=== PATIENT | male | born 1955 | race Caucasian/White ===

== ENCOUNTER → 2021-01-04 | Outpatient (CLI) | payer OTHER ==
--- NOTE | 2021-01-04 17:07 | RAD ---
EXAM: Head CT without contrast. HISTORY: Acute posttraumatic headache. Laceration. TECHNIQUE: Computed tomographic images of the head were obtained without contrast. *One or more of the following individualized dose reduction techniques were utilized for this examina tion: 1. Automated exposure control. 2. Adjustment of the mA and/or kV according to patient size. 3. Use of iterative reconstruction technique. COMPARISON: None. FINDINGS: There is no acute or subacute extra-axial or intraparenchymal hemorrhage. There is no mass effect or midline shift. There is no hydrocephalus. There are areas of decreased attenuation within the cerebral white matter, nonspecific and likely rel ated to chronic small vessel disease. There is mild paranasal sinus mucosal thickening. The orbits and mastoid air cells are unremarkable. There is no calvarial lesion. There is a scalp laceration with associated foci of gas at the vertex. No foreign body is seen. IMPRESSION: 1. No acute intracranial finding. 2. Scalp laceration at the vertex. Electronically signed by: Ann-Marie Ramirez MD (01/04/2021 5:04 PM) [id number]
== END ==
LOC: CT 12:21
PROVIDERS: ATTEND Preventive Medicine Occupational Medicine
DX: T14.8XXA Other injury of unspecified body region, initial encounter (principal); G44.319 Acute post-traumatic headache, not intractable; X58.XXXA Exposure to other specified factors, initial encounter; Y93.89 Activity, other specified; Y92.89 Other specified places as the place of occurrence of the external cause; Y99.8 Other external cause status
CPT/HCPCS: 70450